=== PATIENT | male | born 1960 | race Caucasian/White ===

== ENCOUNTER → 2016-12-22 | Outpatient (CLI) | payer OTHER ==
[~2016-12-22] MED LIST: DAYPRO600 M1 PO; EFFEXOR-XR150 MG PO; HUMIRA40 MG/0.1 SC; KEFLEX500 MG PO; LISINOPRIL10 MG PO; NIACIN1000 MG PO; NORCO 325 MG-101 TAB PO; OMEPRAZOLE40 MG PO; SIMVASTATIN20 MG PO; SOMA250 MG PO; WELLBUTRIN XL300 MG PO; XANAX0.5 MG PO
[2016-12-22 15:27] LABS: BASO % 0.6 % (0.0-1.0); EOS # 0.2 10*3/uL (0.0-0.4); HEMATOCRIT 38.9 % (42.0-52.0); LYMPH # 1.3 10*3/uL (1.3-4.4); LYMPH % 26.6 % (27.0-41.0); MEAN CELL VOLUME 82.8 fl (80.0-94.0); MEAN CORPUSCULAR HGB 27.7 pg (27.0-31.0); MEAN CORPUSCULAR HGB CONC 33.4 g/dl (33.0-37.0); MONO # 0.2 10*3/uL (0.1-1.0); MONO % 5.1 % (3.0-9.0); NEUT % 63.1 % (47.0-73.0); PLATELET COUNT AUTOMATED 152 10*3/uL (130-400); RED CELL DISTRI WIDTH 14.9 % (0-14.5); WHITE BLOOD COUNT 4.7 10*3/uL (4.8-10.8)
[2016-12-22 15:52] LABS: THYROID STIM HORMONE (HS) 1.27 uIU/ml (0.358-4.75)
[2016-12-23 07:07] LABS: FREE T3 010389 3.3 pg/mL (2.0-4.4)
[2016-12-23 17:08] LABS: TESTOSTERONE FREE, (DIRECT) 6.7 pg/mL (7.2-24.0)
== END | disposition home or self-care (01) ==
LOC: LAB 14:38
PROVIDERS: Specialist
DX: E29.1 Testicular hypofunction (principal); R53.83 Other fatigue

== ENCOUNTER → 2020-10-20 | Outpatient (CLI) | payer OTHER | END | disposition home or self-care (01) | LOC: COVID19 11:23 | PROVIDERS: ATTEND Social Worker Clinical | DX: Z11.52 Encounter for screening for COVID-19 (principal) ==

== ENCOUNTER 2024-09-11 09:55 | Emergency (ER) | payer OTHER ==
[~2024-09-11] VITALS: Ht 185.4 cm; Wt 127.0 kg
[2024-09-11] MEDS ORDERED: Amoxicillin/Clavulanate Pota 875 MG TAB PO ONE (10:15)
[2024-09-11] MEDS ORDERED: AMOX-CLAV 875-1 EACH PO (10:17)
== END 2024-09-11 10:27 | disposition home or self-care (01) ==
LOC: ED 09:55
DX: S61.451A Open bite of right hand, initial encounter (principal); L03.113 Cellulitis of right upper limb; J45.909 Unspecified asthma, uncomplicated; I10 Essential (primary) hypertension; F31.9 Bipolar disorder, unspecified; M19.90 Unspecified osteoarthritis, unspecified site; Z90.49 Acquired absence of other specified parts of digestive tract; Z98.890 Other specified postprocedural states; W55.01XA Bitten by cat, initial encounter; Y93.89 Activity, other specified; Y92.89 Other specified places as the place of occurrence of the external cause; Y99.8 Other external cause status

== ENCOUNTER 2024-09-13 11:10 | Emergency (ER) | payer OTHER ==
[~2024-09-13] VITALS: Ht 185.4 cm; Wt 127.0 kg
[~2024-09-13 11:10] MED LIST changes: +AMOX-CLAV 875-1 EACH PO
[2024-09-13 11:15] VITALS: BP 143/99
[2024-09-13] MEDS ORDERED: IPRATROPIUM BRO15 ML INH (11:20)
[2024-09-13] MEDS ORDERED: TOPIRAMATE25 M3 PO (11:20)
[2024-09-13] MEDS ORDERED: SUMATRIPTAN SU100 M1 PO (11:20)
[2024-09-13] MEDS ORDERED: TRAZODONE50 MG PO (11:21)
[2024-09-13] MEDS ORDERED: PROPRANOLOL HCL10 MG PO (11:21)
[2024-09-13] MEDS ORDERED: TAMSULOSIN HCL0.4 MG PO (11:22)
[2024-09-13] MEDS ORDERED: LITHIUM CARBON300 MG PO (11:23)
[2024-09-13] MEDS ORDERED: SPIRIVA RESPIMAT4 GM INH (11:24)
[2024-09-13 11:44] LABS: BASO # 0.1 10*3/uL (0.0-0.1); EOS # 0.5 10*3/uL (0.0-0.4); HEMATOCRIT 41.4 % (42.0-52.0); MEAN CELL VOLUME 88.3 fl (80.0-94.0); MEAN CORPUSCULAR HGB 29.4 pg (27.0-31.0); MEAN CORPUSCULAR HGB CONC 33.3 g/dl (33.0-37.0); MEAN PLATELET VOLUME 10.1 fl (9.6-12.3); MONO # 0.4 10*3/uL (0.1-1.0); MONO % 6.3 % (3.0-9.0); NEUT # 3.4 10*3/uL (2.3-7.9); NEUT % 49.3 % (47.0-73.0); PLATELET COUNT AUTOMATED 221 10*3/uL (130-400); RED BLOOD COUNT 4.69 10*6/uL (4.50-5.90); RED CELL DISTRI WIDTH 13.3 % (0-14.5); WHITE BLOOD COUNT 6.8 10*3/uL (4.8-10.8)
[2024-09-13 12:15] LABS: BUN 13 mg/dl (9-23); CHLORIDE 106 mmol/L (98-107); POTASSIUM 4.1 mmol/L (3.4-5.1)
[2024-09-13] MEDS ORDERED: CLINDAMYCIN HC300 MG PO (12:23)
== END 2024-09-13 12:55 | disposition home or self-care (01) ==
LOC: ED 11:10
PROVIDERS: Physician Assistant Medical
DX: S61.431D Puncture wound without foreign body of right hand, subsequent encounter (principal); L03.113 Cellulitis of right upper limb; I10 Essential (primary) hypertension; J45.909 Unspecified asthma, uncomplicated; F31.9 Bipolar disorder, unspecified; Z79.899 Other long term (current) drug therapy; Z90.49 Acquired absence of other specified parts of digestive tract; Z98.890 Other specified postprocedural states; W55.01XD Bitten by cat, subsequent encounter

== ENCOUNTER 2024-09-16 09:04 | Inpatient (IN) | payer OTHER ==
[~2024-09-16] VITALS: Ht 185.4 cm; Wt 135.2 kg
[~2024-09-16 09:04] MED LIST changes: +CLINDAMYCIN HC300 MG PO; +IPRATROPIUM BRO15 ML INH; +LITHIUM CARBON300 MG PO; +PROPRANOLOL HCL10 MG PO; +SPIRIVA RESPIMAT4 GM INH; +SUMATRIPTAN SU100 M1 PO; +TAMSULOSIN HCL0.4 MG PO; +TOPIRAMATE25 M3 PO; +TRAZODONE50 MG PO
[2024-09-16 09:11] VITALS: BP 131/75
[2024-09-16] MEDS ORDERED: Piperacillin Sodium/Tazobact 50 ML IV ONE (09:25)
[2024-09-16] MEDS ORDERED: SODIUM CHLORIDE 0.9% 1,000 ML IV ONE (09:25)
[2024-09-16] MEDS ORDERED: Vancomycin Hydrochloride 250 ML IV ONE (09:25)
[2024-09-16 09:45] LABS: BASO # 0.1 10*3/uL (0.0-0.1); EOS # 0.5 10*3/uL (0.0-0.4); EOS % 6.8 % (1.0-4.0); MEAN CELL VOLUME 90.1 fl (80.0-94.0); MEAN CORPUSCULAR HGB 29.5 pg (27.0-31.0); MEAN CORPUSCULAR HGB CONC 32.8 g/dl (33.0-37.0); MEAN PLATELET VOLUME 9.7 fl (9.6-12.3); MONO # 0.5 10*3/uL (0.1-1.0); MONO % 6.6 % (3.0-9.0); NEUT # 3.6 10*3/uL (2.3-7.9); NEUT % 53.2 % (47.0-73.0); PLATELET COUNT AUTOMATED 217 10*3/uL (130-400); RED BLOOD COUNT 4.44 10*6/uL (4.50-5.90); RED CELL DISTRI WIDTH 13.3 % (0-14.5); WHITE BLOOD COUNT 6.8 10*3/uL (4.8-10.8)
[2024-09-16 10:06] LABS: BUN 11 mg/dl (9-23); CHLORIDE 104 mmol/L (98-107); POTASSIUM 4.1 mmol/L (3.4-5.1)
[2024-09-16] MEDS ORDERED: ACETAMINOPHEN 325 MG TAB PO PRN (11:05)
[2024-09-16] MEDS ORDERED: Acetaminophen/Hydrocodone 5 MG/325 MG TABLET PO PRN (11:05)
[2024-09-16] MEDS ORDERED: BISACODYL 5 MG TAB PO PRN (11:05)
[2024-09-16] MEDS ORDERED: SOMA 250 MG PO SCH (12:00)
[2024-09-16] MEDS ORDERED: SUMATRIPTAN SUCCINATE 100 MG TAB PO PRN (12:15)
[2024-09-16 13:11] VITALS: BP 137/81
[2024-09-16] MEDS ORDERED: Ampicillin Sodium/Sulbactam 3 GM in SODIUM CHLORIDE 0.9% 100 ML IV SCH (14:00)
[2024-09-16] MEDS ORDERED: Propranolol Hydrochloride 10 MG TAB PO SCH (14:00)
[2024-09-16 17:17] VITALS: BP 119/57
[2024-09-16] MEDS ORDERED: AZELASTINE137 MCG/0. NAS (17:41)
[2024-09-16 20:44] VITALS: BP 127/58
[2024-09-16] MEDS ORDERED: LITHIUM CARBONATE 300 MG CAP PO SCH (22:00)
[2024-09-16] MEDS ORDERED: SIMVASTATIN 20 MG TAB PO SCH (22:00)
[2024-09-17] VITALS: BP 129/54
[2024-09-17 06:00] VITALS: BP 114/76
[2024-09-17 06:18] LABS: ALKALINE PHOSPHATASE 86 U/L (46-116); BUN 9 mg/dl (9-23); CHLORIDE 105 mmol/L (98-107); CHOLESTEROL 179 mg/dL (<200); FREE T4 1.35 ng/dl (0.89-1.76); LDL CHOLESTEROL 99 mg/dL (9-159); POTASSIUM 3.9 mmol/L (3.4-5.1); SGPT/ALT 34 U/L (5-49); TOTAL PROTEIN 7.2 gm/dL (6.0-8.0); TRIGLYCERIDES 125 mg/dl (<150)
[2024-09-17 06:23] LABS: VITAMIN D, 25-HYDROXY 38.9 ng/mL (30-100)
[2024-09-17 07:07] LABS: BASO % 0.6 % (0.0-1.0); EOS # 0.4 10*3/uL (0.0-0.4); EOS % 6.1 % (1.0-4.0); MEAN CELL VOLUME 90.1 fl (80.0-94.0); MEAN CORPUSCULAR HGB 29.1 pg (27.0-31.0); MEAN CORPUSCULAR HGB CONC 32.3 g/dl (33.0-37.0); MEAN PLATELET VOLUME 9.9 fl (9.6-12.3); MONO # 0.5 10*3/uL (0.1-1.0); MONO % 7.5 % (3.0-9.0); NEUT # 3.5 10*3/uL (2.3-7.9); NEUT % 52.3 % (47.0-73.0); PLATELET COUNT AUTOMATED 214 10*3/uL (130-400); RED BLOOD COUNT 4.33 10*6/uL (4.50-5.90); RED CELL DISTRI WIDTH 13.3 % (0-14.5); WHITE BLOOD COUNT 6.7 10*3/uL (4.8-10.8)
[2024-09-17 08:02] VITALS: BP 120/76
[2024-09-17] MEDS ORDERED: TOPIRAMATE 25 MG TAB PO SCH (10:00)
[2024-09-17] MEDS ORDERED: Enoxaparin Sodium 40 MG/0.4 ML SYR SC SCH (10:00)
[2024-09-17] MEDS ORDERED: LISINOPRIL 10 MG TAB PO SCH (10:00)
[2024-09-17] MEDS ORDERED: NIACIN 500 MG TAB PO SCH (10:00)
[2024-09-17] MEDS ORDERED: Tamsulosin Hydrochloride 0.4 MG CAP PO SCH (10:00)
[2024-09-17] MEDS ORDERED: Venlafaxine Hydrochloride 75 MG CAP PO SCH (10:00)
[2024-09-17 11:01] VITALS: BP 111/57
[2024-09-17 20:09] VITALS: BP 100/66
[2024-09-17 21:05] VITALS: BP 112/72
[2024-09-18] VITALS: BP 121/71
[2024-09-18] MEDS ORDERED: LITHIUM CARBON600 MG PO (01:33)
[2024-09-18] MEDS ORDERED: TROSPIUM CHLORI20 M1 PO (01:35)
[2024-09-18] MEDS ORDERED: VENLAFAXINE HY150 MG PO (01:36)
[2024-09-18 08:00] VITALS: BP 123/83
[2024-09-18] MEDS ORDERED: Propranolol Hydrochloride 10 MG TAB PO SCH (08:00)
[2024-09-18] MEDS ORDERED: Ampicillin Sodium/Sulbactam 3 GM in SODIUM CHLORIDE 0.9% 100 ML IV SCH (08:00)
[2024-09-18] MEDS ORDERED: SODIUM CHLORIDE 0.9% 100 ML BAG IV ONE (11:19)
[2024-09-18] MEDS ORDERED: AMPICILLIN SODIUM IV ONE (11:19)
[2024-09-18] MEDS ORDERED: SULBACTAM IV ONE (11:19)
[2024-09-18 12:00] VITALS: BP 135/35
[2024-09-18 16:00] VITALS: BP 116/62
[2024-09-18 20:00] VITALS: BP 114/78
[2024-09-18] MEDS ORDERED: LITHIUM CARBONATE 300 MG CAP PO SCH (22:00)
[2024-09-18] MEDS ORDERED: Venlafaxine Hydrochloride 75 MG CAP PO SCH (22:00)
[2024-09-19] VITALS: BP 118/74
[2024-09-19 08:00] VITALS: BP 130/80
[2024-09-19] MEDS ORDERED: LISINOPRIL10 M1 PO ×2 (08:15→08:17)
[2024-09-19] MEDS ORDERED: AMOX-CLAV 875-1 EACH PO (08:17)
== END 2024-09-19 09:22 | disposition home or self-care (01) | DRG 603 ==
LOC: ED 09:04 → 4E 10:14 → EDHOLD 10:14 → 4E 09-17 19:32
PROVIDERS: Emergency Medicine; Registered Nurse; ADMIT Internal Medicine; ATTEND Internal Medicine
PROC: 0X9J0ZZ Drainage of Right Hand, Open Approach (ICD-10-PCS; principal; 2024-09-17)
DX: L03.113 Cellulitis of right upper limb (principal); L02.511 Cutaneous abscess of right hand; F31.9 Bipolar disorder, unspecified; N40.0 Benign prostatic hyperplasia without lower urinary tract symptoms; I10 Essential (primary) hypertension; F17.210 Nicotine dependence, cigarettes, uncomplicated; S61.001A Unspecified open wound of right thumb without damage to nail, initial encounter; Z79.899 Other long term (current) drug therapy; Z79.01 Long term (current) use of anticoagulants; Z79.2 Long term (current) use of antibiotics; Z90.49 Acquired absence of other specified parts of digestive tract; W55.01XA Bitten by cat, initial encounter; Y93.89 Activity, other specified; Y92.89 Other specified places as the place of occurrence of the external cause; Y99.8 Other external cause status

== ENCOUNTER → 2025-05-12 | Outpatient (CLI) | payer OTHER ==
[~2025-05-12] MED LIST changes: +AZELASTINE137 MCG/0. NAS; +LISINOPRIL10 M1 PO; +LITHIUM CARBON600 MG PO; +TROSPIUM CHLORI20 M1 PO; +VENLAFAXINE HY150 MG PO
[2025-05-12 13:10] LABS: BUN 12 mg/dl (9-23); SGPT/ALT 60 U/L (5-49)
== END | disposition home or self-care (01) ==
LOC: LAB 12:11
PROVIDERS: ATTEND Nurse Practitioner Primary Care
DX: I10 Essential (primary) hypertension (principal); E78.5 Hyperlipidemia, unspecified; R73.09 Other abnormal glucose